=== PATIENT | female | born 1950 | race Two or more races ===

== ENCOUNTER → 2018-01-03 | Outpatient (CLI) | payer MEDICARE, OTHER ==
[~2018-01-03] MED LIST: ALEN70TA43 PO; ATOR-1 PO; BENA10TA4 PO; BENAZEPRIL; CALC-515 PO; CHOL500050 PO; GLY25 PO; GLYBURIDE; LISI-362 PO; METF-407 PO; METF10002 PO; PRAV20TA65 PO; PRAVACHOL; SITA100T PO
[2018-01-03 10:16] LABS: PLATELET COUNT, AUTOMATED 203 K/uL (150-450)
== END ==
LOC: LAB 10:06
PROVIDERS: ATTEND Emergency Medicine
DX: E11.9 Type 2 diabetes mellitus without complications (principal); I10 Essential (primary) hypertension
CPT/HCPCS: 36415; 82040; 82247; 82310; 82374; 82435; 82565; 82947; 83036; 84075; 84132; 84155; 84295; 84450; 84460; 84520; 85025

== ENCOUNTER → 2018-06-05 | Outpatient (CLI) | payer MEDICARE, OTHER ==
[~2018-06-05] MED LIST changes: -BENA10TA4 PO; +BENA10TA55 PO; +METXR500 PO; +PNEU0.5D3 IM
--- NOTE | 2018-06-05 16:13 | RADIOLOGY IMAGING REPORT ---
FACILITY: [facility] PATIENT NAME: Brenna Farr : 1950 MR: [id number] V: [id number] EXAM DATE: ORDERING PHYSICIAN: YAS SANTIAGO TECHNOLOGIST: Location: [facility] [place] Patient: Brenna Farr : 1950 Visit/Account:[id number] Date of Sevice: 06/05/2018 DEXA Scan Clinical history: Osteopenia. Comparison: DEXA scan from 07/19/2017. LUMBAR SPINE: The bone mineral density (BMD) measured from L1-L4 correlates with a Z-score of -0.2 and a T-score of -2.2 which is osteopenia as defined by the World Health Organization. The corresponding risk of fra cture in the lumbar spine is 4-6 times increased compared with a young adult reference population. T his value has increased by 4.2 % since the prior study. More than 5% change is considered significan t. HIP: Bone mineral density (BMD) measured in the LEFT total hip region correlates with a Z-score 0.9 and a T-score of -0.7 which is normal as defined by the World Health Organization. The corresponding risk of fracture in the hip is 1-2 t imes increased compared to a young adult reference population. This value has increase by 1.4 % since the prior study. More than 5% change is considered significant. T score left femoral neck -2.1 Bone mineral density (BMD) measured in the Femoral Neck region measures 0.746 g/cm?. IMPRESSION: 1. Lumbar spine: Osteopenia. There has been 0.2% increase in the bone mineral density since the pre vious exam. 2. Left Total Hip: Normal. There has been 1.4% increase in the bone mineral density since the previ ous exam. 3. Femoral Neck: Bone Mineral Density is 0.746 g/cm? The next DEXA scan of this patient should include the following sites: L1-L4 and the left hip. FRAX? WHO Fracture Risk Assessment Tool link: <http://www.shef.ac.uk/FRAX/tool.jsp?locationValue=9> PLEASE NOTE: 1) The World Health Organization defines low BMD as follows: T-score Normal > -1 Osteopenia < -1 and > -2.5 Osteoporosis < -2.5 without fractures Established osteoporosis < -2.5 with fractures 2) In general, you may wish to consider: Diagnosis Treatment Follow-up DEXA Normal BMD Prevention 2-3 years Osteopenia Prevention/therapy 1-2 years Osteoporosis Therapy Yearly 3) Fracture risk estimated from the T-score is more accurate for vertebral fractures (often spontane ous) than for hip fractures. Report Dictated By: Delphine Chauhan MD at 06/05/2018 3:23 PM Report E-Signed By: Delphine Chauhan MD at 06/05/2018 4:09 PM WSN:[email or web address]
== END ==
LOC: RAD 14:24
PROVIDERS: ATTEND Emergency Medicine
DX: M85.88 Other specified disorders of bone density and structure, other site (principal)
CPT/HCPCS: 77080

== ENCOUNTER → 2018-07-05 | Outpatient (CLI) | payer MEDICARE, OTHER | LOC: LAB 08:57 | PROVIDERS: ATTEND Emergency Medicine | DX: E11.9 Type 2 diabetes mellitus without complications (principal); E55.9 Vitamin D deficiency, unspecified | CPT/HCPCS: 36415; 82306; 83036 ==

== ENCOUNTER → 2018-07-06 | Outpatient (CLI) | payer MEDICARE, OTHER | LOC: LAB 09:23 | PROVIDERS: ATTEND Emergency Medicine | DX: G62.9 Polyneuropathy, unspecified (principal) | CPT/HCPCS: 36415; 82607; 83921 ==

== ENCOUNTER → 2018-10-09 | Outpatient (CLI) | payer MEDICARE, OTHER ==
[~2018-10-09] MED LIST changes: +CYA1000 PO
== END ==
LOC: LAB 10:06
PROVIDERS: ATTEND Emergency Medicine
DX: E53.8 Deficiency of other specified B group vitamins (principal)
CPT/HCPCS: 36415; 82607

== ENCOUNTER → 2019-01-16 | Outpatient (CLI) | payer MEDICARE, OTHER ==
[~2019-01-16] MED LIST changes: +FLU180SY11 IM; +GLIM4TAB50 PO; +PNEI IM
[2019-01-16 09:41] LABS: PLATELET COUNT, AUTOMATED 194 K/uL (150-450)
[2019-01-16 11:03] LABS: LDL CHOLESTEROL 42 mg/dl
== END ==
LOC: LAB 09:08
PROVIDERS: ATTEND Emergency Medicine
DX: E11.9 Type 2 diabetes mellitus without complications (principal)
CPT/HCPCS: 36415; 82040; 82247; 82310; 82374; 82435; 82465; 82565; 82947; 83036; 83718; 84075; 84132; 84155; 84295; 84450; 84460; 84478; 84520; 85025

== ENCOUNTER → 2019-02-16 | Outpatient (CLI) | payer MEDICARE, OTHER ==
--- NOTE | 2019-02-16 12:06 | RADIOLOGY IMAGING REPORT ---
FACILITY: [facility] - [place] PATIENT NAME: LUIS FELIPE WARNER : [id number] MR: [id number] V: [id number] EXAM DATE: ORDERING PHYSICIAN: YAS SANTIAGO TECHNOLOGIST: Darcy Short PROCEDURE:BILATERAL DIGITAL SCREENING MAMMOGRAM WITH CAD ASSISTED INTERPRETATION & 3D TOMOSYNTHESIS COMPARISON:Prior mammograms 07/19/17, 11/28/14, 09/24/13, 09/18/13, 09/15/12. INDICATIONS:Breast cancer screening FINDINGS: The breasts are heterogeneously dense which can obscure small masses. The parenchymal pattern has remained stable allowing for difference in mammographic technique & patient positioning. DIAGNOSTIC CATEGORY 1--NEGATIVE. RECOMMENDATIONS: ROUTINE MAMMOGRAM AND CLINICAL EVALUATION. IMPRESSION: BIRADS 1: Negative. No significant abnormality is seen. Dictated by: Delphine Chauhan M.D. on 02/16/2019 at 10:24 Transcribed by: BENITO on 02/16/2019 at 10:55 Approved by: Delphine Chauhan M.D. on 02/16/2019 at 12:05 [facility]
== END ==
LOC: MAMO 01:31
PROVIDERS: ATTEND Emergency Medicine
DX: Z12.31 Encounter for screening mammogram for malignant neoplasm of breast (principal)
CPT/HCPCS: 77063; 77067

== ENCOUNTER → 2019-06-08 | Day surgery (SDC) | payer MEDICARE, OTHER ==
[~2019-06-08] VITALS: Ht 149.9 cm; Wt 49.4 kg
[2019-06-08] VITALS (8 sets, daily range): BP systolic 90–122; BP diastolic 61–86
[~2019-06-08] MED LIST changes: +LIDOCAINE MPF 1% 5 ML VIAL ONE; +LIDOCAINE/SOD BICARB 8.4% SYR ID ONE; +NORMOSOL R SOLN(*) 1000 ML BAG 1,000 ML IV PRN; +PROPOFOL EMUL(*) 10MG/ML 20 ML 40 ML ONE
--- NOTE | 2019-06-08 11:29 | Short(Outpt) Discharge Summary ---
Discharge Summary Reason for Hosp/Final Diag: (1) Encounter for screening colonoscopy Hospital Course & Plan: pt presented for colonoscopy. she tolerated the procedure well and will be discharged home when criteria met. Departure Discharge to: Home Discharge Instructions Home Meds Active Scripts Glimepiride (GLIMEPIRIDE) 4 Mg Tablet, 4 MG PO QDAY, #90 TAB 3 Refills Prov:YAS SANTIAGO MD 12/05/18 Metformin Hcl (METFORMIN HCL ER) 500 Mg Tabcr, 2 TAB PO QDAY, #180 TAB 3 Refills Prov:YAS SANTIAGO MD 11/21/18 Atorvastatin Calcium (ATORVASTATIN CALCIUM) 80 Mg Tablet, 1 TAB PO QDAY, #90 TAB 3 Refills Prov:YAS SANTIAGO MD 10/02/18 Alendronate Sodium (FOSAMAX) 70 Mg Tablet, 1 TAB PO QWK, #12 TAB 3 Refills Prov:YAS SANTIAGO MD 09/08/18 Benazepril Hcl (BENAZEPRIL HCL) 10 Mg Tab, 1 TAB PO DAILY, #90 TAB 3 Refills Prov:YAS SANTIAGO MD 08/18/18 Sitagliptin Phosphate (JANUVIA) 100 Mg Tablet, 100 MG PO QDAY, #90 TAB 3 Refills Prov:YAS SANTIAGO MD 07/28/18 Reported Medications Cyanocobalamin (Vitamin B-12) (VITAMIN B-12) 1,000 Mcg Tablet, 0.5 TAB PO DAILY 07/10/18 Calcium Carbonate (TUMS) 200 Mg Tab.chew, 200 MG PO PRN, TAB.CHEW 05/24/17 Diet: Regular Activity: As Tolerated Special Instructions: repeat colonoscopy in 10 yrs ALESHIA GOINS Jun 08, 2019 11:28
== END ==
LOC: OR 00:25
PROVIDERS: ATTEND Surgery
DX: Z12.11 Encounter for screening for malignant neoplasm of colon (principal); E11.9 Type 2 diabetes mellitus without complications
CPT/HCPCS: 00812; 36416; 82948; G0121; J2001; J2704